=== PATIENT | female | born 1990 | race Caucasian/White ===

== ENCOUNTER 2021-08-25 19:59 | Inpatient (IN) | payer OTHER ==
[~2021-08-25] VITALS: Ht 157.5 cm; Wt 93.4 kg
== END 2021-08-27 13:24 | disposition home or self-care (01) | DRG 770 ==
LOC: ER 19:59 → OB/GYN 08-26 00:13
PROVIDERS: ADMIT Obstetrics & Gynecology; ATTEND Obstetrics & Gynecology
PROC: 10D17ZZ Extraction of Products of Conception, Retained, Via Natural or Artificial Opening (ICD-10-PCS; principal; 2021-08-26 00:45)
DX: O03.1 Delayed or excessive hemorrhage following incomplete spontaneous abortion (principal); O41.1210 Chorioamnionitis, first trimester, not applicable or unspecified; O41.1410 Placentitis, first trimester, not applicable or unspecified; Z20.822 Contact with and (suspected) exposure to COVID-19; Z3A.12 12 weeks gestation of pregnancy

== ENCOUNTER 2022-05-25 15:15 | Outpatient (CLI) | payer OTHER | END 2022-05-25 16:43 | disposition home or self-care (01) | LOC: PRENATAL 15:15 | PROVIDERS: ATTEND Obstetrics & Gynecology Maternal & Fetal Medicine | DX: O36.80X0 Pregnancy with inconclusive fetal viability, not applicable or unspecified (principal); O34.219 Maternal care for unspecified type scar from previous cesarean delivery; O99.210 Obesity complicating pregnancy, unspecified trimester; Z3A.14 14 weeks gestation of pregnancy ==

== ENCOUNTER 2022-07-05 09:30 | Outpatient (CLI) | payer OTHER | END 2022-07-05 11:55 | disposition home or self-care (01) | LOC: PRENATAL 09:30 | PROVIDERS: ATTEND Obstetrics & Gynecology Maternal & Fetal Medicine | DX: O35.9XX0 Maternal care for (suspected) fetal abnormality and damage, unspecified, not applicable or unspecified (principal); O35.3XX0 Maternal care for (suspected) damage to fetus from viral disease in mother, not applicable or unspecified; O34.219 Maternal care for unspecified type scar from previous cesarean delivery; O99.210 Obesity complicating pregnancy, unspecified trimester; O14.90 Unspecified pre-eclampsia, unspecified trimester; Z3A.20 20 weeks gestation of pregnancy ==

== ENCOUNTER 2022-09-30 10:07 | Outpatient (CLI) | payer OTHER ==
[~2022-09-30 10:07] MED LIST: PRENATAL TABLE1 EAC1 PO
== END 2022-09-30 10:55 | disposition home or self-care (01) ==
LOC: PRENATAL 10:07
PROVIDERS: ATTEND Obstetrics & Gynecology Maternal & Fetal Medicine
DX: O26.849 Uterine size-date discrepancy, unspecified trimester (principal); O36.8199 Decreased fetal movements, unspecified trimester, other fetus; O99.210 Obesity complicating pregnancy, unspecified trimester; O14.90 Unspecified pre-eclampsia, unspecified trimester; Z3A.32 32 weeks gestation of pregnancy

== ENCOUNTER 2022-10-31 00:06 | Inpatient (IN) | payer OTHER ==
[~2022-10-31] VITALS: Ht 154.9 cm; Wt 105.2 kg
[2022-10-31] MEDS ORDERED: CHILDREN'S ASPI81 MG PO (10:32)
[2022-10-31] MEDS ORDERED: IRON325 MG PO (10:32)
== END 2022-11-02 19:33 | disposition home or self-care (01) | DRG 833 ==
LOC: OBS/DEL 00:06 → LDR 03:41 → OBS/DEL 03:41 → OB/GYN 11-02 13:35
PROVIDERS: ADMIT Obstetrics & Gynecology; ATTEND Obstetrics & Gynecology
PROC: 4A1HXCZ Monitoring of Products of Conception, Cardiac Rate, External Approach (ICD-10-PCS; principal; 2022-10-31)
PROC: BY4FZZZ Ultrasonography of Third Trimester, Single Fetus (ICD-10-PCS; 2022-10-31)
PROC: 30233N1 Transfusion of Nonautologous Red Blood Cells into Peripheral Vein, Percutaneous Approach (ICD-10-PCS; 2022-10-31)
DX: O23.33 Infections of other parts of urinary tract in pregnancy, third trimester (principal); O26.893 Other specified pregnancy related conditions, third trimester; R10.2 Pelvic and perineal pain; O99.013 Anemia complicating pregnancy, third trimester; D50.0 Iron deficiency anemia secondary to blood loss (chronic); Z3A.37 37 weeks gestation of pregnancy; Z20.822 Contact with and (suspected) exposure to COVID-19

== ENCOUNTER 2022-11-08 09:31 | Inpatient (IN) | payer OTHER ==
[~2022-11-08] VITALS: Ht 154.9 cm; Wt 3.2 kg
[~2022-11-08 09:31] MED LIST changes: +CHILDREN'S ASPI81 MG PO; +IRON325 MG PO
== END 2022-11-10 09:48 | disposition home or self-care (01) | DRG 788 ==
LOC: OBS/DEL 09:31 → LDR 12:32 → OB/GYN 12:32 → O/R 16:05 → OB/GYN 17:37 → O/R 11-09 11:09 → OB/GYN 11-09 11:10
PROVIDERS: ADMIT Obstetrics & Gynecology; ATTEND Obstetrics & Gynecology
PROC: 4A1HXCZ Monitoring of Products of Conception, Cardiac Rate, External Approach (ICD-10-PCS; 2022-11-08)
PROC: 10D00Z1 Extraction of Products of Conception, Low, Open Approach (ICD-10-PCS; principal; 2022-11-08 14:00)
DX: O36.8330 Maternal care for abnormalities of the fetal heart rate or rhythm, third trimester, not applicable or unspecified (principal); O36.8130 Decreased fetal movements, third trimester, not applicable or unspecified; O34.211 Maternal care for low transverse scar from previous cesarean delivery; Z3A.38 38 weeks gestation of pregnancy; Z37.0 Single live birth; Z20.822 Contact with and (suspected) exposure to COVID-19